=== PATIENT | female | born 1965 ===

== ENCOUNTER 2020-07-13 15:00 | Outpatient (CLI) | payer OTHER | END 2020-07-13 16:02 | disposition home or self-care (01) | LOC: PPH VACUNA 15:00 | DX: Z23 Encounter for immunization (principal) ==

== ENCOUNTER → 2020-08-03 10:01 | Outpatient (CLI) | payer OTHER | END | disposition home or self-care (01) | LOC: PPH VACUNA 10:01 | DX: Z23 Encounter for immunization (principal) ==